=== PATIENT | female | born 1965 | race Caucasian/White ===

== ENCOUNTER → 2020-08-14 09:20 | Outpatient (CLI) | payer BC, SELFPAY ==
--- NOTE | ~2020-08-14 | DEXA_ITS ---
Bone Density Report Name: Florence Mullins Age: 55 Sex: Female Ethnicity: White Date of : 1965 Indication: osteopenia; asthma or emphysema; Referring Provider: ANGELIKA, DEEPAK Study: Bone densitometry was performed. Exam Date: August 14, 2020 Accession number: [id number] Bone Density: Region BMD T-score Z-score Classification AP Spine (L1-L4) 0.884 -1.5 -0.3 Osteopenia Femoral Neck (Left) 0.652 -1.8 -0.6 Osteopenia Total Hip (Left) 0.862 -0.7 0.1 Normal Femoral Neck (Right) 0.640 -1.9 -0.7 Osteopenia Total Hip (Right) 0.850 -0.8 0.0 Normal Total Hip Mean 0.856 -0.8 0.1 Normal World Health Organization criteria for BMD impression classify patients as: Normal (T-score at or above -1.0), Osteopenia (T-score between -1.0 and -2.5), or Osteoporosis (T-score at or below -2.5). 10-year Fracture Risk(1): Major Osteoporotic Fracture 8.0% Hip Fracture 0.8% Reported Risk Factors: [place] (), Neck BMD=0.640, BMI=27.2 (1) FRAX(R) Version 3.08. Fracture probability calculated for an untreated patient. Fracture probability may be lower if the patient has received treatment. Previous Exams: Region Exam Age BMD T-score BMD Change BMD Change Date g/cm2 vs Baseline vs Previous AP Spine(L1-L4) 08/14/2020 55 0.884 -1.5 -0.071* -0.037* 12/03/2016 51 0.922 -1.1 -0.034* -0.034* 03/01/2014 48 0.955 -0.8 Total Hip(Left) 08/14/2020 55 0.862 -0.7 -0.029* -0.027* 12/03/2016 51 0.890 -0.4 -0.002 -0.002 03/01/2014 48 0.892 -0.4 Total Hip(Right) 08/14/2020 55 0.850 -0.8 -0.034* -0.034* 12/03/2016 51 0.884 -0.5 0.000 0.000 03/01/2014 48 0.884 -0.5 *Denotes significance at 95% confidence level, LSC for AP Spine = 0.022 g/cm2, LSC for Total Hip = 0.027 g/cm2 Clinical Information Provided by Patient: Has used the following medications: Vitamin D, Levothyroxin Has the following medical conditions: Asthma or Emphysema Patient maximum height was 66 Menopause Age: 47 No regular weight bearing exercise Onset of menses at age 12 Number of children 2 Impression: The patient has low bone mass, based on the Right Femoral Neck T-score. The patient has an estimated ten-year risk of hip fracture of 0.8% and an estimated ten-year risk of major fracture of 8%, based on the WHO FRAX algorithm. The BMD for the AP Spi
== END ==
PROVIDERS: Visit Provider Nurse Practitioner
DX: M85.88 Other specified disorders of bone density and structure, other site (principal); J45.909 Unspecified asthma, uncomplicated; J43.9 Emphysema, unspecified
CPT/HCPCS: 77080

== ENCOUNTER 2020-09-01 14:41 | Outpatient (CLI) | payer BC, SELFPAY ==
--- NOTE | 2020-09-01 14:59 | ECG_ITS ---
Measurements Intervals [place] Rate: 69 P: 71 CA: 145 QRS: 55 QRSD: 83 T: 68 QT: 389 QTc: 419 Interpretive Statements SINUS RHYTHM LOW QRS VOLTAGE IN PRECORDIAL LEADS BASELINE WANDER- V4 BORDERLINE ECG Electronically Signed On 09-01-2020 15:21:09 CDT by David Tello D.O.
== END 2020-09-01 14:42 | disposition home or self-care (01) ==
LOC: ANHCARD 14:44
PROVIDERS: PCP Family Medicine; Visit Provider Family Medicine
DX: R07.89 Other chest pain (principal); R94.31 Abnormal electrocardiogram [ECG] [EKG]
CPT/HCPCS: 93005

== ENCOUNTER 2020-09-14 08:41 | Outpatient (CLI) | payer BC, SELFPAY ==
--- NOTE | 2020-09-14 08:48 | EST_ITS ---
Patient Info Name: Florence Mullins Age: 55 years : 1965 Gender: Female Ht: 66 in Wt: 170 lbs BSA: 1.91 m2 Exam Date: 09/14/2020 9:01 AM Exam Location: [facility] Stress Patient Status: Outpatient Admit Date: 09/14/2020 Staff Ordering Physician: Pardeep Dacosta MD Attending Provider: Pardeep Dacosta MD Exercise Technologist: Rhona Giraldo RDCS Exercise Physician: David Tello DO Exam Type: CA stress test treadmill Study Info Indications R07.89 - Other chest pain A treadmill exercise stress test was performed. Summary 1. 1. Negative Rj exercise stress test for ischemic ST changes by ECG criteria. 2. 2. Good functional capacity, achieving 9 METs of workload. 3. 3. Appropriate HR response to exercise. 4. 4. Appropriate HR recovery at 1 minute post exercise. 5. 5. No imaging with stress testing. 6. 6. Patient informed of the above results. Protocol: Rj Stress ECG Details Stage: REST Duration (min): 9 min : 23 sec Speed (mph): 0.0 Grade (%): 0 HR (bpm): 74 SBP (mmHg): 129 DBP (mmHg): 79 METS: --- Stage: REST Duration (min): 9 min : 49 sec Speed (mph): 0.0 Grade (%): 0 HR (bpm): 74 SBP (mmHg): 129 DBP (mmHg): 79 METS: --- Stage: STAGE 1 Duration (min): 1 min : 0 sec Speed (mph): 1.7 Grade (%): 10 HR (bpm): 104 SBP (mmHg): 129 DBP (mmHg): 79 METS: --- Stage: STAGE 1 Duration (min): 2 min : 0 sec Speed (mph): 1.7 Grade (%): 10 HR (bpm): 127 SBP (mmHg): 129 DBP (mmHg): 79 METS: --- Stage: STAGE 1 Duration (min): 3 min : 0 sec Speed (mph): 1.7 Grade (%): 10 HR (bpm): 129 SBP (mmHg): 151 DBP (mmHg): 70 METS: --- Stage: STAGE 2 Duration (min): 1 min : 0 sec Speed (mph): 2.5 Grade (%): 12 HR (bpm): 140 SBP (mmHg): 151 DBP (mmHg): 70 METS: --- Stage: STAGE 2 Duration (min): 2 min : 0 sec Speed (mph): 2.5 Grade (%): 12 HR (bpm): 150 SBP (mmHg): 145 DBP (mmHg): 67 METS: --- Stage: STAGE 2 Duration (min): 3 min : 0 sec Speed (mph): 2.5 Grade (%): 12 HR (bpm): 155 SBP (mmHg): 145 DBP (mmHg): 67 METS: --- Stage: STAGE 3 Duration (min): 1 min : 0 sec Speed (mph): 3.4 Grade (%): 14 HR (bpm): 163 SBP (mmHg): 154 DBP (mmHg): 69 METS: --- Stage: STAGE 3 Duration (min): 1 min : 20 sec Speed (mph): 3.4 Grade (%): 14 HR (bpm): 166 SBP (mmHg): 154 DBP (mmHg): 69 METS: --- Stage: RECOVERY Duration (min): 0 min : 39 sec Speed (mph): 0.0 Grade (%): 0 HR (bpm): 157 SBP (mmHg): 154 DBP (mmHg): 69 METS: --- Stage: RECOVERY Duration (min): 1 min : 39 sec Speed (mph): 0.0 Grade (%): 0 HR (bpm): 129 SBP (mmHg): 189 DBP (mmHg): 69 METS: --- Stage: RECOVERY Duration (min): 2 min : 39 sec Speed (m
== END 2020-09-14 08:42 | disposition home or self-care (01) ==
PROVIDERS: PCP Family Medicine; Visit Provider Family Medicine
DX: R07.89 Other chest pain (principal)
CPT/HCPCS: 93017

== ENCOUNTER → 2020-12-03 07:57 | Outpatient (CLI) | payer BC, SELFPAY ==
--- NOTE | ~2020-12-03 | MMUS_ITS ---
EXAMINATION: MM diagnostic leti BI w viviana, US breast LT limited HISTORY: Probably benign left breast masses, patient was due for follow-up in March 2020 TECHNIQUE: Craniocaudal, mediolateral, and mediolateral oblique 3-D tomosynthesis images of the breas ts were performed and synthetic 2-D images were generated. CAD analysis was submitted and interpreted . High resolution limited left breast ultrasound was performed. COMPARISON: 10/23/2019, 10/08/2019, 08/27/2018, 07/24/2017 BREAST PARENCHYMAL COMPOSITION: There are scattered areas of fibroglandular density. FINDINGS: MAMMOGRAPHIC FINDINGS: Right breast: There is no evidence of suspicious mass, calcification, or architectural distortion to suggest malignancy. There has been no suspicious interval change. Left breast: The previously described left breast masses are not definitely seen. No suspicious mass, calcification, or architectural distortion are identified. ULTRASOUND: There is a stable 3 mm oval, circumscribed, parallel, hypoechoic mass with no posterior features or i nternal vascularity at the 4:00 location 4 cm from the nipple. There is stable 5 mm x 2 mm oval, circ umscribed, parallel, hypoechoic mass with no posterior features or internal vascularity at the 11:00 location 2 cm from the nipple. IMPRESSION: 1. Stable, probably benign left breast masses. 2. Given one year of interval stability, recommend 12 month followup left diagnostic mammogram and ul trasound. BI-RADS category 3, probably benign findings. Reviewed, dictated and finalized at location A. LIEUTENANT IMPRESSION: 1. Stable, probably benign left breast masses. 2. Given one year of interval stability, recommend 12 month followup left diagn ostic mammogram and ultrasound. BI-RADS category 3, probably benign findings.
== END ==
PROVIDERS: PCP Family Medicine; Visit Provider Nurse Practitioner
DX: R92.8 Other abnormal and inconclusive findings on diagnostic imaging of breast (principal)
CPT/HCPCS: 76642; 77062; 77066; G0279

== ENCOUNTER → 2021-12-06 07:49 | Outpatient (CLI) | payer BC, SELFPAY ==
--- NOTE | ~2021-12-06 | MMUS_ITS ---
EXAMINATION: MM diagnostic leti BI w viviana, US breast LT limited HISTORY: Follow-up left breast masses TECHNIQUE: Additional 3-D tomosynthesis images of the breasts were performed and synthetic 2-D images were generated. CAD analysis was submitted and interpreted. High resolution Limited left breast ultr asound was performed. COMPARISON: Comparison to multiple prior studies sequentially, with oldest reviewed study dated 01/2016. BREAST PARENCHYMAL COMPOSITION: Breast composed of scattered areas of fibroglandular density. FINDINGS: MAMMOGRAPHIC FINDINGS: There are no suspicious masses, calcifications or architectural distortion in either breast to sugges t malignancy. ULTRASOUND: Limited left breast ultrasound: Normal heterogeneous echotexture without focal solid or cystic mass. Previously identified masses by ultrasound are not demonstrated today. IMPRESSION: 1. No evidence for malignancy in either breast. 2. Routine yearly screening mammogram and regular clinical breast examination are recommended. BI-RADS Category 1: Negative Reviewed, dictated and finalized at location A. APPLICATION DEVELOPER IMPRESSION: 1. No evidence for malignancy in either breast. 2. Routine yearly screening mammogram and regular clinical breast examination a re recommended. BI-RADS Category 1: Negative
== END ==
PROVIDERS: Visit Provider Obstetrics & Gynecology Gynecology
DX: R92.8 Other abnormal and inconclusive findings on diagnostic imaging of breast (principal)
CPT/HCPCS: 76642; 77062; 77066; G0279

== ENCOUNTER 2022-06-23 13:05 | Emergency (ER) | payer BC, SELFPAY ==
[2022-06-23 13:24] VITALS: BP 130/82; PULSE 95; RESP 18; TEMP 36.4; O2SAT 97
--- NOTE | 2022-06-23 14:08 | ED.URI ---
HPI - URI/Sore Throat General Chief Complaint: Upper Respiratory Infection Stated Complaint: sinus drainage Time Seen by Provider: 06/23/22 14:00 History of Present Illness HPI Narrative: Florence Mullins is a 57 yo female with PMH of hypothyroid and anxiety [facility] complaining of a sinus infection . She has been traveling here for the last week has taken no medication except for Tylenol for headache and states that she is having a lot of nasal drainage and blowing out yellow mucus. She has been afebrile but has been sick for at least 10 days Related Data Allergies Allergy/AdvReac Type Severity Reaction Status Date / Time Sulfa (Sulfonamide Allergy Hives Verified 06/23/22 14:07 Antibiotics) Review of Systems Review of Systems: CONSTITUTIONAL: Denies fever, chills, sweats. EYES: Denies visual changes, redness, discharge. ENT has rhinorrhea, has congestion, has sore throat, otalgia. CARDIOVASCULAR: Denies chest pain, palpitations, edema. RESPIRATORY: Denies dyspnea, wheezing, cough GASTROINTESTINAL: Denies abdominal pain, nausea, vomiting, diarrhea. GENITOURINARY: Denies dysuria, hematuria, abnormal discharge SKIN: Denies rash or itching. NEUROLOGIC: Denies numbness, or focal weakness. PSYCHIATRIC: Denies anxiety or depression. PMFSH Past Medical History Medical History Acute non-recurrent maxillary sinusitis Atypical chest pain BMI 31.0-31.9,adult Chronic bilateral low back pain with bilateral sciatica Chronic midline low back pain without sciatica Colon cancer screening COVID (11/23/21) positive home test on 11/25/2021 Dysesthesia affecting both sides of body Encounter for wellness examination in adult Exposure to Streptococcal pharyngitis Fever blister Obesity (BMI 30.0-34.9) Pharyngitis Family History Family History Mother Hypertension Patient's mother is in good health Cerebrovascular accident Father Acute myocardial infarction Social History Social History Smoking status: Never smoker Alcohol intake: never Substance use: never Substance use type: does not use Exam Narrative: GENERAL: This is a well-nourished, well-developed patient, in mild distress. HEAD: normocephalic, atraumatic. EYES: Sclera clear/white. Vision is grossly intact. EARS: External ears normal, auditory canals clear and without drainage, fluid behind TMs. Hearing grossly intact. NOSE: External nose normal without nasal discharge, nares without redness, no rhinorrhea. THROAT: Mucous membranes moist, posterior pharynx mild erythema NECK: Neck supple, non-tender CARDIOVASCULAR: Regular rate and rhythm without murmurs, gallops, or rubs. RESPIRATORY: Clear to auscultation. Breath sounds equal bilaterally. No wheezes, rales, or rhonchi. GASTROINTESTINAL: Not done SKIN: warm, intact with no suspicious lesions or rash, good texture and turgor. NEURO: awake, alert, and oriented to person, place and time. There were no obvious focal neurologic abnormalities. Steady gait EXTREMITIES: Normal range of motion. BACK: Nontender without deformity Course Course Emergency Course: Patient here for an antibiotic for sinus infection that she states she has had symptoms left for 10 days and is essentially not treated Recommended patient continues to take Tylenol or ibuprofen for pain or fever, Zithromax, Flonase and Sudafed Level of Care: Express Care Visit Vital Signs Vital signs: Vital Signs Temperature 97.6 F 06/23/22 13:24 Pulse Rate 95 06/23/22 13:24 Respiratory Rate 18 06/23/22 13:24 Blood Pressure 130/82 06/23/22 13:24 Pulse Oximetry 97 06/23/22 13:24 Oxygen Delivery Room Air 06/23/22 13:24 Temperature 97.6 F 06/23/22 13:24 Pulse Rate 95 06/23/22 13:24 Respiratory Rate 18 06/23/22 13:24 Blood Pressur
== END 2022-06-23 14:16 | disposition home or self-care (01) ==
PROVIDERS: Emergency Provider Nurse Practitioner; PCP Family Medicine
DX: J32.9 Chronic sinusitis, unspecified (principal); Z86.16 Personal history of COVID-19
CPT/HCPCS: 99213; G0463

== ENCOUNTER → 2022-09-03 09:02 | Outpatient (CLI) | payer BC, SELFPAY ==
--- NOTE | ~2022-09-03 | DEXA_ITS ---
Bone Density Report Name: CAYDEN BOWERS Age: 57 Sex: Female Ethnicity: White Date of : 1965 Indication: osteopenia; asthma or emphysema; postmenopausal Referring Provider: Robert*Demetria Gonzalez Study: Bone densitometry was performed. Exam Date: September 03, 2022 Accession number: [id number] Bone Density: Region BMD T-score Z-score Classification AP Spine (L1-L4) 0.878 -1.5 -0.2 Osteopenia Femoral Neck (Left) 0.632 -2.0 -0.7 Osteopenia Total Hip (Left) 0.854 -0.7 0.2 Normal Femoral Neck (Right) 0.627 -2.0 -0.8 Osteopenia Total Hip (Right) 0.831 -0.9 0.0 Normal Total Hip Mean 0.843 -0.8 0.1 Normal World Health Organization criteria for BMD impression classify patients as: Normal (T-score at or above -1.0), Osteopenia (T-score between -1.0 and -2.5), or Osteoporosis (T-score at or below -2.5). 10-year Fracture Risk(1): Major Osteoporotic Fracture 8.7% Hip Fracture 1.0% Reported Risk Factors: [place] (), Neck BMD=0.627, BMI=30.9 (1) FRAX(R) Version 3.08. Fracture probability calculated for an untreated patient. Fracture probability may be lower if the patient has received treatment. Previous Exams: Region Exam Age BMD T-score BMD Change BMD Change Date g/cm2 vs Baseline vs Previous AP Spine(L1-L4) 09/03/2022 57 0.878 -1.5 -0.078* -0.007 08/14/2020 55 0.884 -1.5 -0.071* -0.037* 12/03/2016 51 0.922 -1.1 -0.034* -0.034* 03/01/2014 48 0.955 -0.8 Total Hip(Left) 09/03/2022 57 0.854 -0.7 -0.037* -0.008 08/14/2020 55 0.862 -0.7 -0.029* -0.027* 12/03/2016 51 0.890 -0.4 -0.002 -0.002 03/01/2014 48 0.892 -0.4 Total Hip(Right) 09/03/2022 57 0.831 -0.9 -0.052* -0.019 08/14/2020 55 0.850 -0.8 -0.034* -0.034* 12/03/2016 51 0.884 -0.5 0.000 0.000 03/01/2014 48 0.884 -0.5 *Denotes significance at 95% confidence level, LSC for AP Spine = 0.022 g/cm2, LSC for Total Hip = 0.027 g/cm2 Clinical Information Provided by Patient: Has used the following medications: Vitamin D, Levothyroxin Patient maximum height was 66 Menopause Age: 47 No regular weight bearing exercise Onset of menses at age 12 Number of children 2 Impression: The patient has low bone mass, based on the Left Femoral Neck T-score. The patient has an estimated ten
== END ==
PROVIDERS: PCP Family Medicine; Visit Provider Nurse Practitioner
DX: Z78.0 Asymptomatic menopausal state (principal); M85.89 Other specified disorders of bone density and structure, multiple sites
CPT/HCPCS: 77080

== ENCOUNTER → 2022-09-23 15:19 | Outpatient (CLI) | payer BC, SELFPAY ==
--- NOTE | ~2022-09-23 | US_ITS ---
EXAMINATION: US transvaginal DATE: 09/23/2022 15:48 INDICATION: Pelvic pain Comparison:No prior studies for comparison. TECHNIQUE: Multiple endovaginal sonographic images of the pelvis performed. FINDINGS: The uterus measures 7.9 x 3.2 x 3.8 cm. The endometrial complex measures 5 mm. The ovaries are not visualized. There is no free fluid in the pelvis. There are no abnormal masses seen on either side. IMPRESSION: 1. Unremarkable pelvic ultrasound. Reviewed, dictated and finalized at location B.
== END ==
PROVIDERS: PCP Family Medicine; Visit Provider Nurse Practitioner
DX: R10.2 Pelvic and perineal pain (principal)
CPT/HCPCS: 76830

== ENCOUNTER 2022-11-21 13:14 | Emergency (ER) | payer BC, SELFPAY ==
[2022-11-21 14:22] VITALS: BP 129/82; PULSE 94; RESP 16; TEMP 36.6; O2SAT 98
--- NOTE | 2022-11-21 15:10 | ED.URI ---
HPI - URI/Sore Throat General Chief Complaint: Upper Respiratory Infection Stated Complaint: sinus drainage, congestion,sore throat Time Seen by Provider: 11/21/22 15:10 Source: patient and RN notes reviewed Mode of arrival: ambulatory Limitations: no limitations History of Present Illness HPI Narrative: 57-year-old female presents concern for one-month history cough, sinus congestion and drainage. Reports symptoms to be worsening and she has trouble coughing up phlegm. MD elicited complaint: cough and nasal congestion Related Data Allergies Allergy/AdvReac Type Severity Reaction Status Date / Time Sulfa (Sulfonamide Allergy Hives Verified 11/21/22 15:06 Antibiotics) Review of Systems Review of Systems: CONSTITUTIONAL: Reports malaise EYES: Denies visual changes, redness, or discharge. ENT: Reports rhinorrhea, congestion, sinus pain CARDIOVASCULAR: Denies chest pain, palpitations, or edema. RESPIRATORY: Reports cough, chest congestion. Denies dyspnea. GASTROINTESTINAL: Denies abdominal pain, nausea, vomiting, diarrhea SKIN: Denies rash or itching. MUSCULOSKELETAL: Denies myalgia. NEUROLOGIC: Denies headache. All systems reviewed & are unremarkable except as noted in HPI and below PMFSH Past Medical History Medical History (Updated 11/21/22 @ 15:17 by Radha Anderson NP) Acute non-recurrent maxillary sinusitis Atypical chest pain BMI 30.0-30.9,adult BMI 31.0-31.9,adult Chronic bilateral low back pain with bilateral sciatica Chronic midline low back pain without sciatica Colon cancer screening COVID (11/23/21) positive home test on 11/25/2021 Dysesthesia affecting both sides of body Encounter for wellness examination in adult Exposure to Streptococcal pharyngitis Fever blister Obesity (BMI 30.0-34.9) Pharyngitis Family History Family History Mother Hypertension Patient's mother is in good health Cerebrovascular accident Father Acute myocardial infarction Social History Social History Smoking status: Never smoker Alcohol intake: never Substance use: never Substance use type: does not use Comments At time of signature, agree with nursing past medical, surgical, social and family history. There is no relevant family history pertinent to the presenting complaint Exam Narrative: GENERAL: Well-appearing, well-nourished, and in no acute distress. HEAD: Normocephalic EYES: PERRLA, conjunctivae clear ENT: Nares clear, turbinates edematous and erythematous, clear discharge. Mucous membranes moist. TM pearly daugherty with dull light reflex bilaterally; no tragal tenderness. Oropharynx not erythematous without lesions. Tonsils not enlarged and without exudate, no drooling, no hoarseness, no trismus, uvula midline. NECK: Supple. No lymphadenopathy CHEST: Clear to auscultation, breath sounds equal. No wheezing, rhonchi, rales, or stridor. No respiratory distress, speaks in full sentences. Cough noted HEART: Regular rate and rhythm. No murmur heard. SKIN: Warm, dry, no rash. NEURO: Alert and oriented x3. PSYCH: Normal mood and affect Course Course Emergency Course: Patient is aware of diagnosis, understands and agrees to treatment plan. Anticipatory guidance given. Patient agrees to follow-up as directed and is aware of reasons to seek care at the emergency department. Portions of this record may have been created with voice recognition software Level of Care: Express Care Visit Vital Signs Vital signs: Vital Signs Temperature 97.8 F 11/21/22 14:22 Pulse Rate 94 11/21/22 14:22 Respiratory Rate 16 11/21/22 14:22 Blood Pressure 129/82 11/21/22 14:22 Pulse Oximetry 98 11/21/22 14:22 Temperature 97.8 F 11/21/22 14:22 Pulse Rate 94 11/21/22 14:22 Respiratory Rate 16 11/21/22 14:22 Blood Pressure 129/82 11/21/22 14:22 Pulse Oximetry 98 11/21/22
== END 2022-11-21 15:25 | disposition home or self-care (01) ==
PROVIDERS: Emergency Provider Nurse Practitioner; PCP Family Medicine
DX: J32.9 Chronic sinusitis, unspecified (principal); J40 Bronchitis, not specified as acute or chronic; E66.9 Obesity, unspecified; Z68.31 Body mass index [BMI] 31.0-31.9, adult; Z86.16 Personal history of COVID-19
CPT/HCPCS: 99213; G0463

== ENCOUNTER 2023-03-06 08:06 | Emergency (ER) | payer BC, SELFPAY ==
[2023-03-06 08:28] VITALS: BP 124/72; PULSE 97; RESP 16; TEMP 36.3; O2SAT 95
--- NOTE | 2023-03-06 08:41 | ED.URI ---
HPI - URI/Sore Throat General Chief Complaint: Upper Respiratory Infection Stated Complaint: sorethroat Time Seen by Provider: 03/06/23 08:41 Source: patient and RN notes reviewed Mode of arrival: ambulatory Limitations: no limitations History of Present Illness HPI Narrative: 57-year-old female presented for complaint of sore throat and sinus drainage for 10 days. Endorses nose bleeds lasting up to 15 minutes over the past few days. Taking Tylenol for symptoms. Denies significant sinus pressure, cough, sob, wheezing, n/v/d/f/c. MD elicited complaint: cough Related Data Allergies Allergy/AdvReac Type Severity Reaction Status Date / Time Sulfa (Sulfonamide Allergy Hives Verified 03/06/23 08:27 Antibiotics) Review of Systems Review of Systems: CONSTITUTIONAL:Denies malaise, chills, sweats, fever EYES: Denies visual changes, redness, or discharge ENT: Reports rhinorrhea, epistaxis, sore throat CARDIOVASCULAR: Denies chest pain, palpitations, edema RESPIRATORY: Reports post nasal drainage. Denies dyspnea GASTROINTESTINAL: Denies abdominal pain, nausea, vomiting, diarrhea SKIN: Denies rash or itching MUSCULOSKELETAL: Denies myalgia NEUROLOGIC: Denies headache PMFSH Past Medical History Medical History Acute non-recurrent maxillary sinusitis Atypical chest pain BMI 30.0-30.9,adult BMI 31.0-31.9,adult Chronic bilateral low back pain with bilateral sciatica Chronic midline low back pain without sciatica Colon cancer screening COVID (11/23/21) positive home test on 11/25/2021 Dysesthesia affecting both sides of body Encounter for wellness examination in adult Exposure to Streptococcal pharyngitis Fever blister Obesity (BMI 30.0-34.9) Pharyngitis Family History Family History Mother Hypertension Patient's mother is in good health Cerebrovascular accident Father Acute myocardial infarction Social History Social History Smoking status: Never smoker Alcohol intake: never Substance use: never Substance use type: does not use Exam Narrative: GENERAL: well-appearing, nontoxic EYES: PERRLA, conjunctivae clear ENT: Mucous membranes moist. Left Nare with medial excoriated lesion consistent with site of intermittent epistaxis. No significant active bleeding/drainage. TM pearly daugherty with dull light reflex bilaterally; no tragal tenderness. Oropharynx erythematous without lesions or exudate, no drooling, no hoarseness, no trismus, uvula midline. No tripod positioning, muffled voice, soft palate or pharyngeal wall bulging NECK: Supple. No lymphadenopathy CHEST: Clear to auscultation, breath sounds equal. No wheezing, rhonchi, rales, or stridor. No respiratory distress, speaks in full sentences. HEART: Regular rate and rhythm. No murmur heard. SKIN: Warm, dry, no rash. NEURO: Alert and oriented x3. PSYCH: flat affect Course Course Emergency Course: Patient is aware of diagnosis, understands and agrees to treatment plan. Anticipatory guidance given. Patient agrees to follow-up as directed and is aware of reasons to seek care at the emergency department. Portions of this record may have been created with voice recognition software Level of Care: Express Care Visit Vital Signs Vital signs: Vital Signs Temperature 97.3 F L 03/06/23 08:28 Pulse Rate 97 03/06/23 08:28 Respiratory Rate 16 03/06/23 08:28 Blood Pressure 124/72 03/06/23 08:28 Pulse Oximetry 95 03/06/23 08:28 Oxygen Delivery Room Air 03/06/23 08:28 Temperature 97.3 F L 03/06/23 08:28 Pulse Rate 97 03/06/23 08:28 Respiratory Rate 16 03/06/23 08:28 Blood Pressure 124/72 03/06/23 08:28 Pulse Oximetry 95 03/06/23 08:28 Oxygen Delivery Room Air 03/06/23 08:28 reviewed Procedures Epistaxis Control left: Dire
== END 2023-03-06 09:21 | disposition home or self-care (01) ==
PROVIDERS: Emergency Provider Nurse Practitioner Family; PCP Family Medicine
DX: J06.9 Acute upper respiratory infection, unspecified (principal); R04.0 Epistaxis; Z86.16 Personal history of COVID-19
CPT/HCPCS: 30901; 87081; 87880; 99213; G0463

== ENCOUNTER → 2023-04-29 08:49 | Outpatient (CLI) | payer BC, SELFPAY ==
--- NOTE | ~2023-04-29 | MM_ITS ---
EXAMINATION: MM screening leti BI w viviana HISTORY: Screening mammogram TECHNIQUE: Craniocaudal and mediolateral oblique 3-D tomosynthesis images were obtained and synthetic 2-D images were generated. CAD analysis was submitted and interpreted. COMPARISON: 12/06/2021 diagnostic bilateral mammogram and limited left breast ultrasound 12/03/2020 bilateral diagnostic mammogram and limited left breast ultrasound 10/23/2019 diagnostic left mammogram and complete left breast ultrasound 10/08/2019 bilateral screening mammogram BREAST PARENCHYMAL COMPOSITION: There are scattered areas of fibroglandular density. FINDINGS: Occasional bilateral low-density circumscribed small opacities. There is no evidence of shadia picious mass, calcification, or architectural distortion to suggest malignancy in either breast. Ther e has been no suspicious interval change. IMPRESSION: 1. No mammographic evidence of malignancy. 2. Recommend routine screening mammography in one year. BI-RADS Category 2: Benign finding(s). Reviewed, dictated and finalized at location A.
== END ==
PROVIDERS: PCP Nurse Practitioner; Visit Provider Nurse Practitioner
DX: Z12.31 Encounter for screening mammogram for malignant neoplasm of breast (principal)
CPT/HCPCS: 77063; 77067

== ENCOUNTER → 2024-02-02 15:34 | Outpatient (CLI) | payer BC, SELFPAY ==
--- NOTE | ~2024-02-02 | XR_ITS ---
EXAMINATION: XR chest 2V DATE: 02/02/2024 15:44 INDICATION: Cough, unspecified. TECHNIQUE: Frontal and lateral views of the chest were obtained. COMPARISON: Chest 2 views 1 06/06 FINDINGS: There is mild atelectasis in left midlung zone. No pleural effusion or pneumothorax. The he art size is normal. IMPRESSION: 1. Mild atelectasis in left midlung zone. Reviewed, dictated and finalized at location E. ALESCENT SITTER
== END ==
PROVIDERS: PCP Nurse Practitioner Family; Visit Provider Nurse Practitioner Family
DX: J98.11 Atelectasis (principal); R05.9 Cough, unspecified
CPT/HCPCS: 71046

== ENCOUNTER 2024-06-15 09:54 | Outpatient (CLI) | payer BC, SELFPAY ==
--- NOTE | ~2024-06-15 | MM_ITS ---
EXAMINATION: MM screening leti BI w viviana HISTORY: Screening mammogram TECHNIQUE: Craniocaudal and mediolateral oblique 3-D tomosynthesis images were obtained and synthetic 2-D images were generated. CAD analysis was submitted and interpreted. COMPARISON: 04/29/2023 bilateral screening mammogram 12/06/2021 diagnostic bilateral mammogram and Limited left breast ultrasound BREAST PARENCHYMAL COMPOSITION: There are scattered areas of fibroglandular density. FINDINGS: New relatively high density 2 mm mass density is noted in the posterior inner left breast o n CC projection on the lowermost tomographic images, suggesting possible skin lesion. Diagnostic left mammogram is recommended, with skin marker if there is a skin lesion posteromedially inferiorly on t he left. Otherwise there is no evidence of suspicious mass, calcification, or architectural distortion to sugg est malignancy in either breast. There has been no other suspicious interval change. IMPRESSION: 1. New 2 mm hypodensity lesion at the posterior inner left breast inferiorly, possibly a skin lesion. 2. Diagnostic left mammogram is recommended, with skin marker there is a skin lesion in the area of i nterest BI-RADS Category 0: Incomplete: Needs additional imaging evaluation. Reviewed, dictated and finalized at location A. IMPRESSION: 1. New 2 mm hypodensity lesion at the posterior inner left breast inferiorly, p ossibly a skin lesion. 2. Diagnostic left mammogram is recommended, with skin marker there is a skin l esion in the area of interest BI-RADS Category 0: Incomplete: Needs additional imaging evaluation.
== END 2024-06-15 09:55 ==
LOC: MICIMG 09:55
PROVIDERS: PCP Family Medicine; Visit Provider Nurse Practitioner
DX: Z12.31 Encounter for screening mammogram for malignant neoplasm of breast (principal); R92.8 Other abnormal and inconclusive findings on diagnostic imaging of breast
CPT/HCPCS: 77063; 77067

== ENCOUNTER 2024-07-12 07:48 | Outpatient (CLI) | payer BC, SELFPAY ==
--- NOTE | ~2024-07-12 | MMUS_ITS ---
EXAMINATION: MM diagnostic leti LT w viviana, US breast LT complete HISTORY: Follow-up left breast asymmetries TECHNIQUE: Additional 3-D tomosynthesis images of the left breast were performed and synthetic 2-D im ages were generated. CAD analysis was submitted and interpreted. High resolution complete left breast ultrasound was performed. COMPARISON: Comparison to multiple prior studies sequentially, with oldest reviewed study dated 09/27. BREAST PARENCHYMAL COMPOSITION: Not dense: There are scattered areas of fibroglandular density. FINDINGS: MAMMOGRAPHIC FINDINGS: The area indicated on recent examination corresponds to a skin tag marked on current study. There are no suspicious masses, calcifications or architectural distortion in the left breast to suggest joya linda. ULTRASOUND: Complete US of all 4 quadrants of the breast/s and retroareolar region was reviewed. Normal heterogen eous echotexture of the left breast without discrete mass. IMPRESSION: 1. No evidence for malignancy in the left breast. 2. Routine yearly screening mammogram and regular clinical breast examination are recommended. BI-RADS Category 1: Negative Reviewed, dictated and finalized at location B. IMPRESSION: 1. No evidence for malignancy in the left breast. 2. Routine yearly screening mammogram and regular clinical breast examination a re recommended. BI-RADS Category 1: Negative
== END 2024-07-12 07:49 ==
LOC: MICIMG 07:49
PROVIDERS: PCP Family Medicine; Visit Provider Obstetrics & Gynecology Gynecology
DX: R92.8 Other abnormal and inconclusive findings on diagnostic imaging of breast (principal)
CPT/HCPCS: 76641; 77061; 77065; G0279

== ENCOUNTER 2025-10-27 01:07 | Day surgery (SDC) | payer BC, SELFPAY ==
[2025-10-08 08:37] VITALS: BMI 28.4
--- OUTSIDE RECORDS SUMMARY | 2025-10-27 01:11 | XMS_ITS | Clinical Summary ---
Author Organization [facility] Address [address] [place] [address] Phone Care Team Providers Care Digital Advisor Name Role Phone Pardeep Dacosta MD Primary Care Provider [phone] Allergies No known active allergies Medications levothyroxine 100 mcg tablet Take 100 mcg by mouth daily before breakfast. Active Active Problems Problem Noted Date Diagnosed Date Chest pressure 09/06/2024 Elevated troponin 09/06/2024 Encounters Date Type Department Care Team Description 09/02/2025 External Device Data ST[facility] ABSTRACTION Provider, Abstract 08/26/2025 External Device Data [facility] ABSTRACTION Provider, Abstract 08/26/2025 External Device Data [facility] ABSTRACTION Provider, Abstract 08/26/2025 External Device Data [facility] ABSTRACTION Provider, Abstract 08/12/2025 External Device Data [facility] ABSTRACTION Provider, Abstract 07/30/2025 External Device Data [facility] ABSTRACTION Provider, Abstract from Last 3 Months Social History Tobacco Use Types Packs/Day Years Used Date Smoking Tobacco: Never Tobacco Cessation:Counseling Given: Not Answered Feeling Safe Answer Date Recorded Are you in a relationship wi th someone who hurts you emotionally and/or physically? No 09/06/2024 Comments Unknown Sex and Gender Information Value Date Recorded Sex Assigned at Not on file Legal Sex Female 12:28 PM CDT Gender Identity Not on file Sexual Orientation Not on file Last Filed Vital Signs Vital Sign Reading Time Taken Comments Blood Pressure 136/85 09/07/2024 8:40 AM CDT Pulse 93 09/07/2024 8:40 AM CDT Temperature 36.4 C (97.6 F) 09/07/2024 8:40 AM CDT Respiratory Rate 18 09/07/2024 8:40 AM CDT Oxygen Saturation 94% 09/07/2024 8:40 AM CDT Inhaled Oxygen Concentration - - Weight 81.6 kg (180 lb) 09/06/2024 12:33 PM CDT Height 167.6 cm (5' 6) 09/06/2024 12:33 PM CDT Body Mass Index 29.05 09/06/2024 12:33 PM CDT Plan of Treatment Health Maintenance Due Date Last Done Comments DTAP/TDAP/TD VACCINES (1 - Tdap) 1982 HPV/Cotest (21-29) 1984 HPV/Cotest (30-65) 1993 BREAST CANCER SCREENING 2003 COLORECTAL SCREENING 2008 Colorectal Cancer Screening 2008 FIT-DNA Q 3 years 2008 FIT/FOBT Q 1 year 2008 Flex Sig/CT Colonography Q 5 years 2008 ZOSTER VACCINE (1 of 2) 2013 CERVICAL CANCER SCREENING 10/10/2020 PAP SMEAR 10/10/2020 10/10/2017 INFLUENZA VACCINE (#1) 2025 RSV VACCINE (60+ or ) (1 - 1-dose 75+ series) 2038 Insurance [facility] [employer] CHOICE Advance Directives For more information, please contact: [phone] * Default Full Code - Needs Discussion (Latest Code Status on File) Date Activated Date Inactivated Comments 09/07/2024 5:29 AM 09/07/2024 12:31 PM Care Teams Digital Advisor Relationship Specialty Start Date End Date Pardeep Dacosta MD [address] [place] [address] [address] [place] [address] PCP - General Family Practice 09/07/24
--- OUTSIDE RECORDS SUMMARY | 2025-10-27 01:11 | XMS_ITS | Encounter Summary ---
Author Organization [facility] Address [address] [facility] [place] [address] Care Team Providers Care Stock Patch Sawyer Name Role Phone Pardeep Dacosta MD Primary Care Provider [phone] Encounter Details Date Type Department Care Team (Late st Contact Info) Description 09/05/2018 Lab Requisition [facility] Care DermPath Lab [address] [facility] [place] [phone] Nata Kasper MD [address] [facility] [address] [place] [address] Social History Tobacco Use Types Packs/Day Years Used Date Smoking Tobacco: Never Alcohol Use Standard Drinks/Week Comments No 0 (1 standard drink = 0.6 oz pur e alcohol) Comments Unknown Sex and Gender Information Value Date Recorded Sex Assigned at Not on file Legal Sex Female 5:13 AM MANAGED CARE PROVIDER Gender Identity Not on file Sexual Orientation Not on file documented as of this encounter Plan of Treatment Not on file documented as of this encounter Procedures Procedure Name Priority Date/Time Associated Diagnosis Comments DERMATOPATH TECHNICAL REPORT Routine 09/03/2018 12:00 AM CDT documented in this encounter Results * DERMATOPATH TECHNICAL REPORT (09/03/2018 12:00 AM CDT) Case Report Dermatopathology Report Case: [id number] Authorizing Provider: Nata Kasper MD Collected: 09/03/2018 12:00 AM Pathologist: Maria Elena Cm MD Received: 09/05/2018 06:10 AM Specimen: Skin, left upper arm 10:39 AM T DERMATOPATHOLOGY LABORATORY Addendum 1 At the request of the diagnosing physician, the technical component for MART-1/Melan A was performed by [facility] Dermatopathology [facility]. 10:39 AM T DERMATOPATHOLOGY LABORATORY Addendum electronically signed by Maria Elena Cm MD on 09/07/2018 at 1039 CDT Clinical History Lentigo. Irreg color. 10:39 AM T DERMATOPATHOLOGY LABORATORY Gross Description Specimen A: Received is one formalin filled container labeled with the patient's name and designated left upper arm. The specimen consists of a shave measuring [id number]. Jar 0. [facility] Dermat[facility] performed the technical component only. 10:39 AM T DERMATOPATHOLOGY LABORATORY Embedded Images 10:39 AM [facility] NAMED [facility] DERMATOPATHOLOGY LABORATORY DISCLAIMER An external and internal positive and negative controls are appropriate for the histochemical, immunohistochemical and immunofluorescence stain(s) in this case (if any), except where stated explicitly. The performance characteristics of the stain(s) cited in this report were developed and its performance characteristic determined by the Dermatopathology Laboratory at [facility]. These tests need not be, and therefore are not, approved by the [place] Food and Drug Administration. The tests are used for clinical purposes. 10:39 AM FORMERLY NAMED [facility] DERMATOPATHOLOGY LABORATORY at 1250 CDT Pathology/Cytolog y TISSUE SPECIMEN FROM SKIN / Unknown 09/03/2018 09/05/2018 6:10 AM CDT us Nata Kasper MD LAB - PATHOLOGY/CYTOLOGY OR DERABLES Edited Result - Final DERMATOPATHOLOGY LABORATORY [facility] - Department of Dermatology [address], 5th [place] [address], [facility] [phone] documented in this encounter Visit Diagnoses Not on filedocumented in this encounter Care Teams Stock Patch Sawyer Relationship Specialty Start Date End Date Pardeep Dacosta MD [phone] (work) PCP - General Family Medicine 09/07/15 documented as of this encounter
--- OUTSIDE RECORDS SUMMARY | 2025-10-27 01:11 | XMS_ITS | Clinical Summary ---
Author Organization [facility] [employer] Address [address] [facility] [place] [address] Care Team Providers Care Side Panel Hanger Name Role Phone Pardeep Dacosta MD Primary Care Provider [phone] Source Comments [facility] [employer],non-owned Affiliates and Associated Physician Practices is amultiple site organization consisting of ambulatory clinics and hospital sitesin [place], [place], [place] and [place]. This disclosure is being madepursuant to the Care Everywhere program and may not contain all information available regarding this patient. Last updated 18.[facility] [employer] Allergies No known active allergies Medications * Be aware that medications may not be up to date on this document. Alwaysverify current medications with the patient. levothyroxine (SYNTHROID) 100 MCG tablet Take 100 mcg by mouth daily before breakfast Active mometasone-form oterol (DULERA) 100-5 MCG/ACT inhaler Inhale 2 Puffs by mouth 2 times daily Active vitamin D, ergocalciferol, (DRISDOL) 11534 UNITS capsule Take 50,000 Units by mouth every Monday & Twice weekly Active Social History Tobacco Use Types Packs/Day Years Used Date Smoking Tobacco: Never Alcohol Use Standard Drinks/Week Comments No 0 (1 standard drink = 0.6 oz pur e alcohol) Comments Unknown Sex and Gender Information Value Date Recorded Sex Assigned at Not on file Legal Sex Female 5:13 AM MONTESSORI TODDLER TEACHER Gender Identity Not on file Sexual Orientation Not on file Last Filed Vital Signs Vital Sign Reading Time Taken Comments Blood Pressure 130/83 09/07/2015 4:00 PM CDT Pulse 76 09/07/2015 4:00 PM CDT Temperature 36.8 C (98.2 F) 09/07/2015 11:26 AM CDT Respiratory Rate 16 09/07/2015 4:00 PM CDT Oxygen Saturation 100% 09/07/2015 11:26 AM CDT Inhaled Oxygen Concentration - - Weight 86.2 kg (190 lb) 09/07/2015 11:26 AM CDT Height 167.6 cm (5' 5.98) 09/07/2015 11:26 AM C DT Body Mass Index 30.68 09/07/2015 11:26 AM CDT Plan of Treatment Health Maintenance Due Date Last Done Comments COLOGUARD (AGES 45-75) - COL ON CA SCREENING 1963 COLON MONITORING 1963 COLONOSCOPY - COLON CA SCREENING 1963 CT COLONOGRAPHY - COLON CA SCREENING 1963 Colorectal Cancer Screening 1963 FIT - COLON CA SCREENING 1963 FLEX SIG - COLON CA SCREENING 1963 LIPID TESTING 1963 MAMMOGRAM 1963 HIV SCREENING 1978 HEPATITIS C SCREENING 05/23/1981 DTAP/TDAP/TD VACCINES (1 - Tdap) 1982 PAP SMEAR 1984 Cervical Cancer Screening 1993 PAP with HPV 1993 PNEUMOCOCCAL VACCINE 50+ (1 of 1 - PCV) 2013 ZOSTER VACCINE (1 of 2) 2013 DEPRESSION SCREENING 11/27/2024 COVID-19 VACCINE (1 - 2024-2 6 season) 2025 INFLUENZA VACCINE (#1) 2025 Respiratory Syncytial Virus (RSV) Vaccine Pt: or over 60 yrs (1 - 1-dose 75+ series) 2038 HEPATITIS B VACCINE Aged Out No longe r eligible based on patient's age to complete this topic HIB VACCINE Aged Out No longer eligi ble based on patient's age to complete this topic HPV VACCINE Aged Out No longer eligi ble based on patient's age to complete this topic MENINGOCOCCAL (Group B) VACC INE SHARED DECISION-MAKING Aged Out No longer eligibl e based on patient's age to complete this topic MENINGOCOCCAL GROUPS A/C/Y/W VACCINE Aged Out No longer eligible b ased on patient's age to complete this topic Insurance [employer] Care Teams Side Panel Hanger Relationship Specialty Start Date End Date Pardeep Dacosta MD PCP - General Family Medicine 09/07/15
--- OUTSIDE RECORDS SUMMARY | 2025-10-27 01:11 | XMS_ITS | Clinical Summary ---
Author Organization [facility] [address] [facility] [facility] [address] Address [address] [place] [address] Care Team Providers Care Online Marketing Analyst Name Role Phone Pardeep Dacosta MD Primary Care Provider [phone] Allergies No known active allergies Medications albuterol HFA (Ventolin HFA) 90 mcg/actuation inhaler Inhale 2 puffs every 6 (six) hours as needed for wheezing Active loratadine (CLARITIN) 10 mg tablet Take 1 tablet (10 mg total) by mouth daily Active valACYclovir (VALTREX) 1 gram tablet Take by mouth Acti ve venlafaxine 75 mg tablet extended release 24hr 24 hr tablet Take 1 tablet (75 mg total) by mouth daily Active atorvastatin (LIPITOR) 10 mg tablet Take 1 tablet (10 mg total) by mouth daily Active levothyroxine (SYNTHROID) 88 mcg tablet Take 1 tablet (88 mcg total) by mouth dean of admissions before breakfast Active Active Problems No known active problems Surgical History Surgery Date Site/Laterality Comments SECTION BACK SURGERY Medical History Medical History Date Comments Chest pain Shortness of breath Diabetes mellitus Fever blister Wheezing Sleep apnea Hyperlipidemia Thyroid disease Asthma Family History Medical History Relation Name Comments Heart attack Father Stroke Mother Relation Name Status Comments Father Alive Mother Alive Social History Tobacco Use Types Packs/Day Years Used Date Smoking Tobacco: Never Tobacco Cessation:Counseling Given: Not Answered Comments Unknown Sex and Gender Information Value Date Recorded Sex Assigned at Not on file Legal Sex Female 10:43 AM RESIDENT SERVICE COORDINATOR Gender Identity Not on file Sexual Orientation Not on file Last Filed Vital Signs Vital Sign Reading Time Taken Comments Blood Pressure 112/68 11/05/2024 10:18 AM RESIDENT SERVICE COORDINATOR Pulse 87 11/05/2024 10:18 AM RESIDENT SERVICE COORDINATOR Temperature - - Respiratory Rate - - Oxygen Saturation 95% 11/05/2024 10:18 AM RESIDENT SERVICE COORDINATOR Inhaled Oxygen Concentration - - Weight 79.9 kg (176 lb 3.2 oz) 11/05/2024 10:18 AM RESIDENT SERVICE COORDINATOR Height 167.6 cm (5' 6) 11/05/2024 10:18 AM RESIDENT SERVICE COORDINATOR Body Mass Index 28.44 11/05/2024 10:18 AM RESIDENT SERVICE COORDINATOR Plan of Treatment Health Maintenance Due Date Last Done Comments Breast Cancer Screening-Mammogram 1963 Cervical Cancer Screening 1963 Colon Cancer Screening-Colonoscopy 1963 Depression Screening 1963 Hepatitis C Screening 1963 DTaP/Tdap/Td Vaccine (1 - Tdap) 1974 Hepatitis B Screening 1981 Regular Well Visit/Exam 18-64 1981 Zoster Vaccine (1 of 2) 2013 Covid-19 Vaccine (3 - 2024-2 6 season) 2025 05/11/2022, 04/13/2022 Influenza Vaccine (#1) 2025 Pneumococcal vaccine <65 Aged Out No longer eligible based on patient's age to complete this topic [place] [address] [facility] [employer] CHOICE Care Teams Online Marketing Analyst Relationship Specialty Start Date End Date Pardeep Dacosta MD [address] [address] PCP - General Family Medicine 10/15/24
--- OUTSIDE RECORDS SUMMARY | 2025-10-27 01:11 | XMS_ITS | Encounter Summary ---
Author Organization [facility] Address [address] [facility] [place] [address] Care Team Providers Care Plasterer Apprentice Name Role Phone Pardeep Dacosta MD Primary Care Provider [phone] Encounter Details Date Type Department Care Team (Late st Contact Info) Description 10/23/2018 Lab Requisition [facility] Care DermPath Lab [address] [facility], [place] [address] Lady Fall MD [address] [facility] [address] DE[place] [address] Social History Tobacco Use Types Packs/Day Years Used Date Smoking Tobacco: Never Alcohol Use Standard Drinks/Week Comments No 0 (1 standard drink = 0.6 oz pur e alcohol) Comments Unknown Sex and Gender Information Value Date Recorded Sex Assigned at Not on file Legal Sex Female 5:13 AM PRORATION CLERK Gender Identity Not on file Sexual Orientation Not on file documented as of this encounter Plan of Treatment Not on file documented as of this encounter Procedures Procedure Name Priority Date/Time Associated Diagnosis Comments DERMATOPATH TECHNICAL REPORT Routine 10/22/2018 12:00 AM PRORATION CLERK documented in this encounter Results * DERMATOPATH TECHNICAL REPORT (10/22/2018 12:00 AM PRORATION CLERK) Case Report Dermatopathology Report Case: [id number] Authorizing Provider: Lady Fall MD Collected: 10/22/2018 12:00 AM Pathologist: Js Burger MD Received: 10/23/2018 06:26 AM Specimen: Skin, left upper arm 12:51 PM [facility] Clinical History Bx proven junc melan prolif. Check margins. Previous Bx: [id number]. 12:51 PM [facility] Gross Description Specimen A: Received is one formalin filled container labeled with the patient's name and designated left upper arm.The specimen consists of an ellipse measuring [id number] and is oriented with the notch at the 3 o'clock position, not labeled on the requisition. The epidermal surface consists of a centrally located 6x6mm previous biopsy site. The 12 to 6 o'clock margin is inked green. The 6 o'clock to 12 o'clock margin is inked black. The 12 o'clock tip is submitted in cassette 1. The 6 o'clock tip is submitted in cassette 2. The remainder of the ellipse is serially sectioned and submitted in cassettes 3-4. Jar 0. [facility] performed the technical component only. 12:51 PM [facility] D[facility] Embedded Images 12:51 PM [facility] DISCLAIMER An external and internal positive and negative controls are appropriate for the histochemical, immunohistochemical and immunofluorescence stain(s) in this case (if any), except where stated explicitly. The performance characteristics of the stain(s) cited in this report were developed and its performance characteristic determined by the Dermatopathology Laboratory at [facility]. These tests need not be, and therefore are not, approved by the [place] Food and Drug Administration. The tests are used for clinical purposes. 12:51 PM [facility] D[facility]ORY at [address] [facility] Pathology/Cytolog y TISSUE SPECIMEN FROM SKIN / Unknown 10/22/2018 10/23/2018 6:26 AM [facility] us Lady Fall MD LAB - PATHOLOGY/CYTOLOGY ORD ERABLES Final Result DERMATOPATHOLOGY LABORATORY [facility] - Department of Dermatology [address] [place] [address], [address]th [place] [address], [facility] [phone] documented in this encounter Visit Diagnoses Not on filedocumented in this encounter Care Teams Plasterer Apprentice Relationship Specialty Start Date End Date Lupardus, Pardeep, MD PCP - General Family Medicine 09/07/15 documented as of this encounter
[2025-10-27 06:21] VITALS: BP 125/73; PULSE 73; RESP 16; TEMP 36.1; O2SAT 97
[2025-10-27] MEDS: LACTATED RINGERS 1,000 ML 150 ML IV CONT (06:29)
--- NOTE | 2025-10-27 07:17 | WPDANESEPPF ---
Anes - Initial Pre Proc Eval Procedure: Operation Date: 10/27/25 07:30 Proposed Procedures p Screening Colonoscopy - Seth De Jesus DO Date/Time: 10/27/25 07:17 Surgeon: Seth De Jesus DO Pre Op Diagnosis: Neoplasm screening Patient Data Age: 60 Gender: F Height: 1.68 m Weight: 78 kg Last Vital Signs Temp 36.1 C L 10/27/25 06:21 Pulse 73 10/27/25 06:21 Resp 16 10/27/25 06:21 BP 125/73 10/27/25 06:21 Pulse Ox 97 10/27/25 06:21 O2 Del Method Room Air 10/27/25 06:21 Allergies Allergy/AdvReac Type Severity Reaction Status Date / Time Sulfa (Sulfonamide Allergy Hives Verified 10/27/25 06:20 Antibiotics) Home Medications ?Medication ?Instructions ?Recorded ?Confirmed ?Type albuterol sulfate 90 mcg/actuation 2 puff inhalation Q4H PRN 03/16/23 10/08/25 History aerosol inhaler (Ventolin HFA) shortness of breath or wheezing loratadine 10 mg tablet (Claritin) 10 mg PO DAILY PRN allergic 03/16/23 10/08/25 History symptoms levothyroxine 88 mcg tablet 88 mcg PO DAILY #30 tabs 11/08/24 10/27/25 Rx valacyclovir 1 gram tablet 1,000 mg PO .COMPLEX PRN fever 03/13/25 10/08/25 Rx blister #30 tabs atorvastatin 10 mg tablet 10 mg PO DAILY #30 tabs 03/14/25 10/27/25 Rx fluticasone propionate 50 1 spray intranasal BID #16 grams 08/22/25 10/08/25 Rx mcg/actuation nasal spray,suspension (Flonase Allergy Relief) venlafaxine 75 mg capsule,extended 75 mg PO DAILY #30 caps 10/20/25 10/27/25 Rx release 24 hr (Effexor XR) Patient hx anesthesia problems: none Family hx anesthesia problems: none Results Review: All pre-operative results and documents have been reviewed as part of the pre-operative evaluation. [facility], [facility] Past Medical History Medical History (Updated 09/08/25 @ 12:16 by Pardeep Dacosta MD) UTI (urinary tract infection) BMI 28.0-28.9,adult Overweight (BMI 25.0-29.9) Breast cancer screening by mammogram mammogram 06/15/2024 with new 2 mm lesion in her left breast which may represent skin lesion with diagnostic mammogram recommended. Diagnostic mammogram and left breast ultrasound unremarkable 07/12/2024. Controlled diabetes mellitus without complication, without long-term current use of insulin (04/16/24) fasting glucose 124 with hemoglobin A1c 6.7 on 04/13/2024. Fasting glucose 102 with hemoglobin A1c 6.2, GFR 67, urine microalbumin ratio of 3 on 07/15/2024. Glucose 100, hemoglobin A1c 6.1 And GFR 78 on 05/24/2025. Wheezing Cough BMI 30.0-30.9,adult Obesity (BMI 30.0-34.9) Exposure to Streptococcal pharyngitis BMI 31.0-31.9,adult Colon cancer screening normal colonoscopy November, Fever blister Acute non-recurrent maxillary sinusitis Atypical chest pain exercise stress echo 09/07/2024 was negative for ischemia. Encounter for wellness examination in adult Chronic bilateral low back pain with bilateral sciatica Dysesthesia affecting both sides of body Abnormal fasting glucose Fasting glucose 114 on 12/24/2021. Glucose 106 , hemoglobin A1c 6.3 on 12/21/2022. Glucose 99 on 03/05/2023. Fasting glucose 109 on 11/11/2023. Chronic midline low back pain without sciatica Family History Family History Mother Hypertension Patient's mother is in good health Cerebrovascular accident Father Acute myocardial infarction Social History Social History Smoking status: Never smoker Alcohol intake: never Substance use: never Substance use type: does not use Current Housing: Decline to Answer Concerned About Future Housing: Decline to Answer Difficulty Paying Gas/Electric Bills: Decline to Answer Difficulty Paying for Meds: Decline to Answer Currently Unemployed: Decline to Answer Education: Decline to Answer Difficulty w/ Childcare or Family Care: Decline to Answer Living arrangements: with family Spiritual care concerns: No Anes - Eval Final PreProcedure Day of Procedure 10/27/25 07:17 Patient weight: overweight Heart: regular rate and rhythm Lungs: clear to auscultation Airway: Mallampati scale class II Neurological: alert and oriented Last oral intake: >/= 8 hours ASA classification: III Emergent: no Anesthetic plan: proceed Anesthesia type and monitoring: general GIVS and standard monitoring Results Review: All pre-operative results and documents have been reviewed as part of the pre-operative evaluation. Informed Consent: The patient's anesthetic plan and its attendant risks and benefits were discussed with the patient/family/POA. Questions were solicited and answers provided to the satisfaction of the patient/family/POA.
--- NOTE | 2025-10-27 07:31 | PM.IMHP ---
H&P: HPI History of Present Illness Date/Time: 10/27/25 07:31 Chief Complaint: Screening for colorectal cancer Narrative: this is a 60-year-old woman who presents for colonoscopy. Her last colonoscopy was 10 years ago. She denies any history of hematochezia or melena. She denies any family history of colon cancer. Review of Systems Review of Systems: All systems reviewed & are unremarkable except as noted in HPI and below Constitutional: Constitutional: Denies chills, Denies fever(s), Denies headache(s) and Denies weight loss Eyes: Eyes: Denies change in vision ENT: Denies dizziness, Denies headache(s), Denies neck mass and Denies throat swelling Cardiovascular: Cardiovascular: Denies chest pain, Denies lightheadedness and Denies dyspnea Respiratory: Respiratory: Denies cough, Denies dyspnea and Denies wheezing Gastrointestinal: Gastrointestinal: Denies abdominal pain, Denies change in bowel habits, Denies nausea and Denies vomiting Genitourinary: Genitourinary: Denies hematuria and Denies dysuria Musculoskeletal: Musculoskeletal: Reports as per HPI Integumentary/Breasts: Skin/Breast: Reports as per HPI Neurologic: Denies dizziness and Denies headache(s) Allergic/Immunologic: Allergic/Immunologic: Denies throat swelling and Denies wheezing [facility] Past Medical History Medical History (Updated 10/27/25 @ 07:32 by Seth De Jesus DO) UTI (urinary tract infection) BMI 28.0-28.9,adult Overweight (BMI 25.0-29.9) Breast cancer screening by mammogram mammogram 06/15/2024 with new 2 mm lesion in her left breast which may represent skin lesion with diagnostic mammogram recommended. Diagnostic mammogram and left breast ultrasound unremarkable 07/12/2024. Controlled diabetes mellitus without complication, without long-term current use of insulin (04/16/24) fasting glucose 124 with hemoglobin A1c 6.7 on 04/13/2024. Fasting glucose 102 with hemoglobin A1c 6.2, GFR 67, urine microalbumin ratio of 3 on 07/15/2024. Glucose 100, hemoglobin A1c 6.1 And GFR 78 on 05/24/2025. Wheezing Cough BMI 30.0-30.9,adult Obesity (BMI 30.0-34.9) Exposure to Streptococcal pharyngitis BMI 31.0-31.9,adult Colon cancer screening normal colonoscopy November, Fever blister Acute non-recurrent maxillary sinusitis Atypical chest pain exercise stress echo 09/07/2024 was negative for ischemia. Encounter for wellness examination in adult Chronic bilateral low back pain with bilateral sciatica Dysesthesia affecting both sides of body Abnormal fasting glucose Fasting glucose 114 on 12/24/2021. Glucose 106 , hemoglobin A1c 6.3 on 12/21/2022. Glucose 99 on 03/05/2023. Fasting glucose 109 on 11/11/2023. Chronic midline low back pain without sciatica Family History Family History Mother Hypertension Patient's mother is in good health Cerebrovascular accident Father Acute myocardial infarction Social History Social History Smoking status: Never smoker Alcohol intake: never Substance use: never Substance use type: does not use Current Housing: Decline to Answer Concerned About Future Housing: Decline to Answer Difficulty Paying Gas/Electric Bills: Decline to Answer Difficulty Paying for Meds: Decline to Answer Currently Unemployed: Decline to Answer Education: Decline to Answer Difficulty w/ Childcare or Family Care: Decline to Answer Living arrangements: with family Spiritual care concerns: No Meds Home Medications and Allergies Home Medications ?Medication ?Instructions ?Recorded ?Confirmed ?Type albuterol sulfate 90 mcg/actuation 2 puff inhalation Q4H PRN 03/16/23 10/08/25 History aerosol inhaler (Ventolin HFA) shortness of breath or wheezing loratadine 10 mg tablet (Claritin) 10 mg PO DAILY PRN allergic 03/16/23 10/08/25 History symptoms levothyroxine 88 mcg tablet 88 mcg PO DAILY #30 tabs 11/08/24 10/27/25 Rx valacyclovir 1 gram tablet 1,000 mg PO .COMPLEX PRN fever 03/13/25 10/08/25 Rx blister #30 tabs atorvastatin 10 mg tablet 10 mg PO DAILY #30 tabs 03/14/25 10/27/25 Rx fluticasone propionate 50 1 spray intranasal BID #16 grams 08/22/25 10/08/25 Rx mcg/actuation nasal spray,suspension (Flonase Allergy Relief) venlafaxine 75 mg capsule,extended 75 mg PO DAILY #30 caps 10/20/25 10/27/25 Rx release 24 hr (Effexor XR) Allergies Allergy/AdvReac Type Severity Reaction Status Date / Time Sulfa (Sulfonamide Allergy Hives Verified 10/27/25 06:20 Antibiotics) Vital Signs Vital Signs - 24 hr 10/27/25 06:21 Temperature 97 F L Pulse Rate 73 Respiratory Rate 16 Blood Pressure 125/73 Pulse Oximetry 97 Oxygen Delivery Room Air Exam Const: General: no acute distress and alert Orientation/consciousness: patient oriented x3 HENMT: Head: normocephalic and atraumatic Ears: hearing grossly normal bilaterally Face/Nose/Sinus: Normal nares present Mouth: Yes Normal oral and palatal mucosa present Eyes: Periorbital: periorbital findings normal Sclera: sclerae normal EOM: EOMs intact bilaterally Neck: Neck: normal visual inspection, no lymphadenopathy and trachea midline Chest: Chest palpation & inspection: normal inspection of the chest Resp: Effort & Inspection: normal respiratory effort Auscultation: clear to auscultation bilaterally Cardio: Jugular venous distension: no JVD Rate: regular rate Rhythm: regular rhythm Heart sounds: S1 normal heart sound present and S2 normal heart sound present Peripheral pulses: Peripheral pulses 2+ throughout GI: Inspection: normal to inspection GI Palp: Yes Soft to palpation, No Tenderness to palpation present (GI), No Guarding due to palpation present (GI) and No Rebound tenderness present Percussion: Yes normal to percussion Auscultation: normal bowel sounds : General: Yes no CVA tenderness Back/Spine/Pelvis: Back: no CVA tenderness Neuro: General: patient oriented x3, no focal motor deficits and CN's II-XI intact bilaterally Cognition (Neuro): normal cognition Speech: normal speech Motor exam (neuro): 5/5 motor strength present throughout Extrem: General: capillary refill normal and no clubbing, cyanosis or edema Assessment and Plan Assessment and plan (1) Screening for colorectal cancer: Code(s): Z12.11 - Encounter for screening for malignant neoplasm of colon; Z12.12 - Encounter for screening for malignant neoplasm of rectum Status: Acute Assessment and Plan: I have recommended colonoscopy. I have discussed the procedure, risks, benefits, and alternatives. Questions were answered. Patient is agreeable to proceed.
--- NOTE | 2025-10-27 07:49 | S_PTH ---
PATIENT: Florence Mullins LOC: [facility] Chou#:[id number] AGE/SX: 60/F ROOM: RE10/27/[address]: Seth De Jesus DO : 1965 BED: DIS: 10/27/2025 SPEC #: [id number] RECD: 10/27/25 10:40 STATUS: [place] REQ #: [id number] ERVIN: 10/27/25 07:[address]: Seth De Jesus DEPT: [facility] Surgical RECD BY: Yeni Rock ENTERED: 10/27/25 10:41 SP TYPE: Surgical OTHR DR: Pardeep Dacosta MD Tissues: A - Colon Polypectomy B - Colon Biopsy Procedures: Hematoxylin and Eosin Stain Gross and Microscopic Level 4
[2025-10-27 07:52] VITALS: BP 133/89; PULSE 87; RESP 21; O2SAT 97
[2025-10-27 08:02] VITALS: BP 133/78; PULSE 69; RESP 17; O2SAT 97
[2025-10-27 08:12] VITALS: BP 133/75; PULSE 68; RESP 17; O2SAT 99
== END 2025-10-27 08:20 | disposition home or self-care (01) ==
PROVIDERS: PCP Family Medicine; Visit Provider Surgery
PROC: 0DJD8ZZ Inspection of Lower Intestinal Tract, Via Natural or Artificial Opening Endoscopic (ICD-10-PCS; CPT 45378; principal; 2025-10-27 07:30)
DX: Z12.11 Encounter for screening for malignant neoplasm of colon (principal); D12.5 Benign neoplasm of sigmoid colon; K62.89 Other specified diseases of anus and rectum; K52.9 Noninfective gastroenteritis and colitis, unspecified
CPT/HCPCS: 45380; 88305; J2003; J2704; J7120

== ENCOUNTER 2025-11-07 07:32 | Outpatient (CLI) | payer BC, SELFPAY ==
--- NOTE | ~2025-11-07 | MM_ITS ---
EXAMINATION: MM screening leti BI w viviana HISTORY: Screening. TECHNIQUE: Craniocaudal and mediolateral oblique 3-D tomosynthesis images were obtained and synthetic 2-D images were generated. CAD analysis was submitted and interpreted. COMPARISON: 2023, 2022, and 2021. BREAST PARENCHYMAL COMPOSITION: Dense: The breasts are heterogeneously dense FINDINGS: No suspicious masses are seen. There are no suspicious calcifications. No unexplained architectural distortion is seen. There are no skin or nipple abnormalities identified. There is no adenopathy seen on the images submitted. IMPRESSION: No mammographic evidence to suggest malignancy is seen. The patient may return to screening mammography as per ACR guidelines. BI-RADS 1 - Negative. Reviewed, dictated and finalized at location C. [facility]
== END 2025-11-07 07:33 | disposition home or self-care (01) ==
PROVIDERS: PCP Nurse Practitioner; Visit Provider Nurse Practitioner
DX: Z12.31 Encounter for screening mammogram for malignant neoplasm of breast (principal)
CPT/HCPCS: 77063; 77067